=== PATIENT | female | born 1965 | race Caucasian/White ===

== ENCOUNTER 2016-10-24 01:09 | Emergency (ER) | payer MEDICAID ==
[~2016-10-24] VITALS: Ht 157.5 cm; Wt 70.8 kg
--- NOTE | 2016-10-24 01:15 | NUR ---
Patient to ER bed 8 to gown for evaluation. Side rails up. Report given to LESLEE Robles.
[2016-10-24] MEDS ORDERED: NACL 0.9% 1,000 ML IV ONE (01:16)
[2016-10-24 01:17] VITALS: BP 164/62; PULSE 76; RESP 18; TEMP 97.2; O2SAT 100
--- NOTE | 2016-10-24 01:18 | NUR ---
Pt brought in by family in stable condition. Pt c/o epigastric pain 05/25 that began 1 hour ago after eating. +N/V. Pt present in severe pain, pt is hunched over and crying. Pt stated that she took Maalox but it was ineffective. -sob -chest pain. No acute distress noted at this time, will continue to monitor
--- NOTE | 2016-10-24 01:18 | NUR ---
ER at bedside examining patient.
[2016-10-24] MEDS ORDERED: MAG HYDROX/AL HYDROX/SIMETH 30 ML, BELLADONNA ALKALOIDS/PHENOBARB 10 ML, LIDOCAINE VISC... PO ONE ×3 (01:30)
[2016-10-24] MEDS ORDERED: ONDANSETRON HCL 4 MG/2 ML VIAL IVP ONE (01:30)
[2016-10-24] MEDS ORDERED: KETOROLAC TROMETHAMINE 30 MG VIAL IVP ONE ×2 (01:30→02:30)
[2016-10-24] MEDS ORDERED: fentaNYL CITRATE/PF 100 MCG/2 ML AMP IVP ONE (01:30)
[2016-10-24 01:39] LABS: BASOPHILS % (AUTO) 0.3 % (0.0-2.0); EOSINOPHILS # (AUTO) 0.1 K/uL (0.0-0.4); EOSINOPHILS % (AUTO) 0.9 % (0.0-4.0); HEMATOCRIT 39.7 % (36-48); HEMOGLOBIN 13.3 g/dL (12.0-16.0); LYMPHOCYTES # (AUTO) 3.3 K/uL (1.0-5.5); MEAN CORPUSCULAR HEMOGLOBIN 30 pg (27-31); MEAN CORPUSCULAR HGB CONC 33 % (32-36); MEAN CORPUSCULAR VOLUME 89 fL (79.0-98.0); MONOCYTES # (AUTO) 0.5 K/uL (0.0-1.0); MONOCYTES % (AUTO) 6.7 % (1.7-9.3); NEUTROPHILS # (AUTO) 3.9 K/uL (1.8-7.7); NEUTROPHILS % (AUTO) 50.1 % (40.0-70.0); PLATELET COUNT (AUTO) 348 K/uL (130-430); RED BLOOD CELL COUNT(AUTO) 4.46 MIL/uL (4.2-6.2); RED CELL DISTRIBUTION WIDTH 12.3 % (9.0-15.0); WHITE BLOOD COUNT (AUTO) 7.8 K/uL (4.8-10.8)
[2016-10-24 01:53] LABS: BILIRUBIN,URINE NEGATIVE (NEGATIVE); BLOOD, URINE NEGATIVE (NEGATIVE); CLARITY/URINE SL HAZY (CLEAR); COLOR,URINE YELLOW (YELLOW); GLUCOSE,URINE NEGATIVE (NEGATIVE); KETONES,URINE NEGATIVE (NEGATIVE); LEUKOCYTE ESTERASE ,URINE NEGATIVE (NEGATIVE); NITRITE, URINE NEGATIVE (NEGATIVE); PH,URINE 5.5 (5.0-8.0); PROTEIN URINE NEGATIVE (NEGATIVE); UROBILINOGEN,URINE 0.2 (0.2-1.0)
[2016-10-24 01:55] LABS: CALCIUM 9.6 mg/dL (8.4-11.0); CREATININE 0.79 mg/dL (0.55-1.30); POTASSIUM 3.5 mmol/L (3.5-5.1)
[2016-10-24 02:00] LABS: TOTAL BILIRUBIN 0.4 mg/dL (0.0-1.0); TOTAL PROTEIN, SERUM 7.6 g/dL (6.4-8.3)
[2016-10-24] MEDS ORDERED: LORazepam 2 MG/ML VIAL (FOR ER USE) IVP ONE (02:30)
[2016-10-24 03:44] VITALS: BP 90/50; PULSE 70; RESP 12; TEMP 97.2; O2SAT 100
--- NOTE | 2016-10-24 03:44 | NUR ---
Patient given written and verbal discharge instructions and verbalizes understanding. ER MD discussed with patient the results and treatment provided. Patient in stable condition. ID arm band removed. IV catheter removed intact and dressing applied, no active bleeding. Rx of bentyl, mylanta, and pepcid given. Patient educated on pain management and to follow up with PMD. Pain Scale 0/10. Opportunity for questions provided and answered.
== END 2016-10-24 03:44 | disposition home or self-care (01) ==
LOC: SED 01:09
DX: K21.9 Gastro-esophageal reflux disease without esophagitis (principal); Z90.49 Acquired absence of other specified parts of digestive tract
CPT/HCPCS: 36415; 80053; 81003; 81025; 83690; 85025; 96361; 96374; 96375; 99284; J1885; J2001; J2060; J2405; J3010; J7030

== ENCOUNTER 2019-05-24 11:36 | Emergency (ER) | payer MEDICAID ==
[~2019-05-24] VITALS: Ht 157.5 cm; Wt 68.0 kg
[2019-05-24 11:36] VITALS: BP_SYST 141
[2019-05-24] MEDS ORDERED: KETOROLAC TROMETHAMINE 30 MG VIAL IVP ONE (12:00)
[2019-05-24 12:10] LABS: BASOPHILS % (AUTO) 0.7 % (0.0-2.0); EOSINOPHILS # (AUTO) 0.1 K/uL (0.0-0.4); EOSINOPHILS % (AUTO) 1.1 % (0.0-4.0); HEMATOCRIT 42.3 % (36-48); HEMOGLOBIN 14.2 g/dL (12.0-16.0); LYMPHOCYTES # (AUTO) 2.1 K/uL (1.0-5.5); LYMPHOCYTES % (AUTO) 33.9 % (20.5-51.5); MEAN CORPUSCULAR HEMOGLOBIN 31 pg (27-31); MEAN CORPUSCULAR HGB CONC 34 % (32-36); MEAN CORPUSCULAR VOLUME 92 fL (79.0-98.0); MONOCYTES # (AUTO) 0.5 K/uL (0.0-1.0); MONOCYTES % (AUTO) 7.5 % (1.7-9.3); NEUTROPHILS # (AUTO) 3.4 K/uL (1.8-7.7); NEUTROPHILS % (AUTO) 56.8 % (40.0-70.0); PLATELET COUNT (AUTO) 289 K/uL (130-430); RED BLOOD CELL COUNT(AUTO) 4.63 MIL/uL (4.2-6.2); RED CELL DISTRIBUTION WIDTH 12.8 % (9.0-15.0); WHITE BLOOD COUNT (AUTO) 6.1 K/uL (4.8-10.8)
[2019-05-24 12:18] LABS: BILIRUBIN,URINE NEGATIVE (NEGATIVE); CLARITY/URINE CLEAR (CLEAR); COLOR,URINE YELLOW (YELLOW); GLUCOSE,URINE NEGATIVE (NEGATIVE); KETONES,URINE NEGATIVE (NEGATIVE); LEUKOCYTE ESTERASE ,URINE NEGATIVE (NEGATIVE); NITRITE, URINE NEGATIVE (NEGATIVE); PROTEIN URINE NEGATIVE (NEGATIVE); UROBILINOGEN,URINE 0.2 (0.2-1.0)
[2019-05-24 12:19] LABS: CALCIUM 9.1 mg/dL (8.4-11.0); CREATININE 0.8 mg/dL (0.55-1.30); POTASSIUM 4.2 mmol/L (3.5-5.1)
[2019-05-24 12:20] LABS: BLOOD, URINE TRACE (NEGATIVE)
[2019-05-24 12:25] LABS: ALBUMIN 3.9 g/dL (3.4-4.8); TOTAL BILIRUBIN 0.3 mg/dL (0.0-1.0)
[2019-05-24 12:41] LABS: BACTERIA,URINE RARE /HPF (None Seen); MUCUS,URINE 1+ /LPF (None Seen); RBC,URINE 0-3 /HPF (0-3); WBC,URINE 0-3 /HPF (0-3)
[2019-05-24 14:00] VITALS: BP_SYST 128
== END 2019-05-24 13:59 | disposition home or self-care (01) ==
LOC: SED 11:36
DX: K62.5 Hemorrhage of anus and rectum (principal)
CPT/HCPCS: 36415; 74176; 80053; 81000; 81025; 83690; 85025; 96374; 99284; J1885

== ENCOUNTER 2020-03-04 15:12 | Emergency (ER) | payer MEDICAID ==
[~2020-03-04] VITALS: Ht 154.9 cm; Wt 68.0 kg
--- NOTE | 2020-03-04 15:15 | NUR ---
Dr Forbes notified patient is moaning and screaming due to severe headache, VSS, [facility]
--- NOTE | 2020-03-04 15:20 | NUR ---
Dr Forbes assessing patient in the triage room
[2020-03-04 15:24] VITALS: BP_SYST 152
[2020-03-04] MEDS ORDERED: KETOROLAC TROMETHAMINE 60 MG/2 ML VIAL IM ONE (15:45)
[2020-03-04] MEDS ORDERED: PROCHLORPERAZINE EDISYLATE 10 MG/2 ML VIAL IM ONE (15:45)
--- NOTE | 2020-03-04 15:45 | NUR ---
Patient to [facility] for evaluation. Side rails up.
--- NOTE | 2020-03-04 15:47 | NUR ---
Note undone in EDM - 03/04/20 at 1835 by [email or web address] PATIENT BROUGHT IN COMPLAINING OF 2 DAY HISTORY OF MILD CONSTANT HEADACHE. PATIENT REPORTS THAT SHE WAS SEEN IN AN HOSPITAL IN [place] FOR SAME COMPLAINTS. PATIENT REPORTS THAT SHE RECIEVED A LUMBAR PUNCTURE AND HEAD CT WHICH 54-year-old Female who presents with a 2 day history of gradual onset, mild, constant, headache. Patient was seen at another facility in [place] for similar complaints. She had a lumbar puncture and a CT of the head which was negative. On ED arrival, the patient states that she may have "inflammation" in her head. This is not the worst headache of her life. Denies any fever, chills, chest pain, shortness of breath, nausea, vomiting, diarrhea, recent head injury/trauma, or focal deficits.
--- NOTE | 2020-03-04 15:47 | NUR ---
PATIENT BROUGHT IN COMPLAINING OF 2 DAY HISTORY OF MILD CONSTANT HEADACHE. PATIENT REPORTS THAT SHE WAS SEEN IN AN HOSPITAL IN [place] FOR SAME COMPLAINTS. PATIENT REPORTS THAT SHE RECIEVED A LUMBAR PUNCTURE AND HEAD CT WHICH WERE NEGATIVE. PAIN 10/10. NO OTHER COMPLAINTS/INJURIES PER PATIENT OR NOTED. WILL CONTINUE TO MONITOR.
--- NOTE | 2020-03-04 15:51 | NUR ---
medicated per md orders.
--- NOTE | 2020-03-04 16:35 | NUR ---
DR LANG AT BEDSIDE DISCUSSING RESULTS OF CT SCAN
[2020-03-04 16:48] VITALS: BP_SYST 132
--- NOTE | 2020-03-04 16:48 | NUR ---
Patient given written and verbal discharge instructions and verbalizes understanding. ER MD discussed with patient the results and treatment provided. Patient in stable condition. ID arm band removed. Rx of NORCO AND MAXALT given. Patient educated on pain management and to follow up with PMD. Pain Scale 0/10 Opportunity for questions provided and answered. Medication side effect fact sheet provided.
== END 2020-03-04 16:48 | disposition home or self-care (01) ==
LOC: SED 15:12
DX: G43.909 Migraine, unspecified, not intractable, without status migrainosus (principal); I10 Essential (primary) hypertension; E11.9 Type 2 diabetes mellitus without complications
CPT/HCPCS: 70450; 96372; 99284; J0780; J1885

== ENCOUNTER 2020-03-07 04:49 | Emergency (ER) | payer MEDICAID ==
[~2020-03-07] VITALS: Ht 154.9 cm; Wt 68.0 kg
--- NOTE | 2020-03-07 05:03 | NUR ---
Placed in room 6 . Placed on food service sales representatives, blood pressure machine and pulse oximeter. To gown for exam. Side rails up.
[2020-03-07 05:04] VITALS: BP_SYST 133
--- NOTE | 2020-03-07 05:04 | NUR ---
Eloy Alfaro at bedside examining patient.
--- NOTE | 2020-03-07 05:05 | NUR ---
Pt presents to the ER for headache x 2 days. Pt had a recent visit for headache on 03/04/20. Pt is crying and moaning. Pt n/v in the ED. Rates pain 05/25. Pt states had a recent visit at a hospital in [place], [place]. Denies fever, sob, CP.
[2020-03-07] MEDS ORDERED: MORPHINE 4 MG/ML INJ. SYRINGE IM ONE (05:15)
[2020-03-07] MEDS ORDERED: ONDANSETRON HCL 4 MG/2 ML VIAL IM ONE (05:15)
[2020-03-07] MEDS ORDERED: NACL 0.9% 1,000 ML IV ONE (05:15)
[2020-03-07] MEDS ORDERED: MORPHINE SULFATE 10 MG/ML VIAL ONE (05:22)
[2020-03-07] MEDS ORDERED: ONDANSETRON HCL 4 MG/2 ML VIAL ONE (05:23)
--- NOTE | 2020-03-07 05:27 | NUR ---
Patient transported to radiology for CT scan via wheelchair , accompanied by Marleni.
[2020-03-07 05:38] LABS: BASOPHILS % (AUTO) 0.6 % (0.0-2.0); EOSINOPHILS # (AUTO) 0.1 K/uL (0.0-0.4); EOSINOPHILS % (AUTO) 1.7 % (0.0-4.0); HEMATOCRIT 41.6 % (36-48); HEMOGLOBIN 14.1 g/dL (12.0-16.0); LYMPHOCYTES # (AUTO) 3.1 K/uL (1.0-5.5); LYMPHOCYTES % (AUTO) 45.4 % (20.5-51.5); MEAN CORPUSCULAR HEMOGLOBIN 31 pg (27-31); MEAN CORPUSCULAR HGB CONC 34 % (32-36); MEAN CORPUSCULAR VOLUME 91 fL (79.0-98.0); MONOCYTES # (AUTO) 0.4 K/uL (0.0-1.0); MONOCYTES % (AUTO) 6.2 % (1.7-9.3); NEUTROPHILS # (AUTO) 3.1 K/uL (1.8-7.7); NEUTROPHILS % (AUTO) 46.1 % (40.0-70.0); PLATELET COUNT (AUTO) 325 K/uL (130-430); RED BLOOD CELL COUNT(AUTO) 4.59 MIL/uL (4.2-6.2); WHITE BLOOD COUNT (AUTO) 6.8 K/uL (4.8-10.8)
--- NOTE | 2020-03-07 05:38 | NUR ---
Patient back from radiology, stable.
[2020-03-07 05:42] LABS: CALCIUM 9.4 mg/dL (8.4-11.0); CREATININE 0.77 mg/dL (0.55-1.30); POTASSIUM 3.1 mmol/L (3.5-5.1)
[2020-03-07 05:48] LABS: TOTAL BILIRUBIN 0.3 mg/dL (0.0-1.0)
[2020-03-07] MEDS ORDERED: KETAMINE 30 MG/3 ML SYRINGE IVP ONE (06:30)
[2020-03-07] MEDS ORDERED: METOCLOPRAMIDE HCL 10 MG/2 ML VIAL IVP ONE (06:30)
[2020-03-07] MEDS ORDERED: METOCLOPRAMIDE HCL 10 MG/2 ML VIAL ONE (06:46)
[2020-03-07] MEDS ORDERED: KETAMINE 30 MG/3 ML SYRINGE ONE (06:47)
--- NOTE | 2020-03-07 07:02 | NUR ---
CT W/ CONTRAST QUESTIONAIRE AND CONSENT FORM SIGNED.
--- NOTE | 2020-03-07 07:08 | NUR ---
PATIENT TO RADIOLOGY FOR CTA
--- NOTE | 2020-03-07 07:10 | NUR ---
REPORT FROM GAEL CAMILO
[2020-03-07] MEDS ORDERED: POTASSIUM CHLORIDE 20 MEQ TAB.PRT.SR PO ONE (07:15)
--- NOTE | 2020-03-07 07:15 | NUR ---
PATIENT MEDICATED PER MD ORDER. PATIENT RESTING IN [facility] WITH LIGHTS OFF.
[2020-03-07] MEDS ORDERED: IOHEXOL 350 mgI/mL, 150 ML INFUS..BTL IV ONE (07:23)
[2020-03-07] MEDS ORDERED: MORPHINE 4 MG/ML INJ. SYRINGE IVP ONE (08:00)
--- NOTE | 2020-03-07 08:30 | NUR ---
PT TO RADIOLOGY VIA WHEEL CHAIR WITH RADIOLOGY STAFF.
--- NOTE | 2020-03-07 08:56 | NUR ---
Abner requesting update, verified with PT: "okay to give health information.
[2020-03-07] MEDS ORDERED: KETOROLAC TROMETHAMINE 30 MG VIAL IVP ONE (10:15)
--- NOTE | 2020-03-07 10:15 | NUR ---
PT AMBULATORY TO RESTROOM
--- NOTE | 2020-03-07 11:35 | NUR ---
ER Dr. SWAIN at bedside DISCUSSING RESULTS AND DISCHARGE ORDERS WITH patient.
[2020-03-07 11:40] VITALS: BP_SYST 113
--- NOTE | 2020-03-07 11:40 | NUR ---
Patient given written and verbal discharge instructions and verbalizes understanding. ER MD discussed with patient the results and treatment provided. Patient in stable condition. ID arm band removed. IV catheter removed intact and dressing applied, no active bleeding. Patient educated on pain management and to follow up with PMD. Pain Scale 5/10 PATIENT WILL MEDICATE AT HOME. Opportunity for questions provided and answered. Medication side effect fact sheet provided.
== END 2020-03-07 11:41 | disposition home or self-care (01) ==
LOC: SED 04:49
DX: G44.209 Tension-type headache, unspecified, not intractable (principal)
CPT/HCPCS: 36415; 70450; 70496; 70498; 80053; 85025; 96372; 96374; 96375; 99285; J1885; J2270 ×2; J2405; J2765; J7030; Q9967

== ENCOUNTER 2023-05-20 13:11 | Emergency (ER) | payer MEDICAID ==
[~2023-05-20] VITALS: Ht 157.5 cm; Wt 68.9 kg
[2023-05-20 13:15] VITALS: BP_SYST 105; PULSE 78; RESP 18; TEMP 98.3; O2SAT 97
[2023-05-20] MEDS ORDERED: KETOROLAC TROMETHAMINE 60 MG/2 ML VIAL IM ONE (15:30)
[2023-05-20] MEDS ORDERED: HYDR-3927 PO (15:34)
[2023-05-20] MEDS ORDERED: IBUP-1969 PO (15:34)
[2023-05-20 16:03] VITALS: BP_SYST 105; PULSE 78; RESP 18; TEMP 98.3; O2SAT 97
[2023-05-20] MEDS ORDERED: HYDR-3917 PO (17:09)
== END 2023-05-20 16:05 | disposition home or self-care (01) ==
LOC: SED 13:11
DX: M54.2 Cervicalgia (principal); M79.622 Pain in left upper arm; Z79.899 Other long term (current) drug therapy
CPT/HCPCS: 99285; 70450; 72125; 76376; 96372; J1885